=== PATIENT | female | born 1935 | race Asian ===

== ENCOUNTER → 2017-01-12 | Outpatient (CLI) | payer OTHER, MEDICAID | LOC: BRMIMAGING 14:52 | PROVIDERS: ATTEND Family Medicine | DX: Z13.820 Encounter for screening for osteoporosis (principal); M81.0 Age-related osteoporosis without current pathological fracture; Z78.0 Asymptomatic menopausal state; Z79.899 Other long term (current) drug therapy ==

== ENCOUNTER → 2017-01-13 | Outpatient (CLI) | payer OTHER, MEDICAID | LOC: FIMAGING 07:53 | DX: Z12.31 Encounter for screening mammogram for malignant neoplasm of breast (principal) | CPT/HCPCS: G0202 ==

== ENCOUNTER → 2017-01-18 | Outpatient (CLI) | payer OTHER, MEDICAID | LOC: CIMAGING 10:25 | PROVIDERS: ATTEND Family Medicine | DX: R91.8 Other nonspecific abnormal finding of lung field (principal) | CPT/HCPCS: 71020-PO ==

== ENCOUNTER → 2018-02-09 | Outpatient (CLI) | payer OTHER, MEDICAID | LOC: FIMAGING 07:46 | PROVIDERS: ATTEND Family Medicine | DX: Z12.31 Encounter for screening mammogram for malignant neoplasm of breast (principal) ==